=== PATIENT | female | born 1955 | race Caucasian/White ===

== ENCOUNTER 2019-08-26 17:05 | Outpatient (REF) | payer MEDICARE, SELFPAY ==
[2019-08-26 19:13] LABS: Abs Immature Grans 0.01 k/cumm (0.0-0.09); Absolute Basophil Count 0.05 k/cumm (0.0-0.2); Absolute Eosinophil Count 0.24 k/cumm (0.0-0.7); Absolute Lymphocyte Count 2.44 k/cumm (1.2-3.4); Absolute Monocyte Count 0.57 k/cumm (0.11-0.7); Absolute Neutrophil Count 5.37 k/cumm (1.2-6.7); Basophils % 0.6; Eosinophils % 2.8; HCT 47.8 % (36.0-46.0); HGB 15.9 g/dL (12.0-15.5); Immature Grans % 0.1; Lymphocytes % 28.1; Mean Corp. HGB Concentration 33.3 g/dL (32.0-36.0); Mean Corpuscular Volume 90.2 fL (80-95); Mean Platelet Volume 11.3 fL (8.0-11.0); Monocytes % 6.6; Neutrophils % 61.8; Platelet Count 314 x1000/uL (130-400); White Blood Cell Count 8.68 k/cumm (4.4-10.8)
[2019-08-26 19:23] LABS: ALT 19 U/L (14-59); AST 16 U/L (15-37); Albumin 4.1 g/dL (3.4-5.0); Alkaline Phosphatase 99 U/L (46-116); Anion Gap 10.8 mmol/L (3-11); BUN 18 mg/dL (7-18); Bilirubin, Direct 0.12 mg/dL (0.00-0.20); Bilirubin, Total 0.4 mg/dL (0.2-1.0); CO2 27.2 mmol/L (21.0-32.0); CREATININE 0.81 mg/dL (0.55-1.02); Calcium 9.1 mg/dL (8.5-10.1); Chloride 105 mmol/L (98-107); Glucose 88 mg/dL (70-100); PHOSPHORUS 3.7 mg/dL (2.6-4.7); Potassium 4.2 mmol/L (3.5-5.1); Sodium 143 mmol/L (136-145); Total Protein 7.3 g/dL (6.4-8.2)
[2019-08-26 19:26] LABS: PTT Activated 28.1 sec (21.0-31.4); Prothrombin Time 9.8 sec (9.3-11.0)
[2019-08-27 22:24] LABS: CRP, High Sensitivity 1.79 mg/L
[2019-08-28 10:04] LABS: HIV-1/2 Ag & Ab Screen Negative (NEGAT)
[2019-08-28 10:43] LABS: Hepatitis C Ab w Rflx HCV PCR Negative (NEGAT)
[2019-08-28 14:39] LABS: ANA Interpretation Negative (NEGAT)
== END 2019-08-26 17:25 ==
LOC: NCHCN 17:05
PROVIDERS: PCP Family Medicine; Visit Provider Nurse Practitioner Family
DX: R23.3 Spontaneous ecchymoses (principal); E04.2 Nontoxic multinodular goiter; R53.83 Other fatigue; Z11.4 Encounter for screening for human immunodeficiency virus [HIV]; Z11.59 Encounter for screening for other viral diseases
CPT/HCPCS: 80048; 80069; 80076; 86141; 86803; 87389; 85025; 85610; 85730; 86038

== ENCOUNTER 2020-08-10 17:40 | Outpatient (REF) | payer MEDICARE, SELFPAY ==
[2020-08-10 20:30] LABS: Abs Immature Grans 0.02 10^3/uL (0.0-0.06); Absolute Basophil Count 0.04 10^3/uL (0.0-0.2); Absolute Eosinophil Count 0.19 10^3/uL (0.0-0.7); Absolute Lymphocyte Count 2.49 10^3/uL (1.2-3.4); Absolute Neutrophil Count 6.05 10^3/uL (1.2-6.7); Basophils % 0.4; HCT 48.3 % (36.0-46.0); HGB 15.7 g/dL (11.2-15.7); Immature Grans % 0.2; Lymphocytes % 26.5; MCH 29.8 pg (27.0-33.0); MCHC 32.5 % (32.0-36.0); MCV 91.7 fL (80-95); MPV 11.3 fL (8.0-11.0); Monocytes % 6.4; Neutrophils % 64.5; Nucleated RBC 0 %; Platelet Count 258 10^3/uL (130-400); RBC 5.27 10^6/uL (3.93-5.22); RDW 12.5 % (11.7-14.6); RDW-SD 42.4 fL; WBC 9.39 10^3/uL (4.4-10.8)
[2020-08-10 20:54] LABS: Iron 41 ug/dL (50-170); Total Iron Binding Capacity 268 ug/dL (250-450); Transferrin Sat 15 % (15-50)
[2020-08-10 21:01] LABS: ALT 16 U/L (14-59); AST 9 U/L (15-37); Albumin 4.1 g/dL (3.4-5.0); Alkaline Phosphatase 100 U/L (46-116); Anion Gap 8.7 mmol/L (3-11); BUN 18 mg/dL (7-18); Bilirubin, Total 0.4 mg/dL (0.2-1.0); CO2 29.3 mmol/L (21.0-32.0); CREATININE 0.88 mg/dL (0.55-1.02); Calcium 9.2 mg/dL (8.5-10.1); Chloride 106 mmol/L (98-107); Ferritin 149 ng/mL (8-252); Glucose 85 mg/dL (74-106); LDL CHOLESTEROL 124 mg/dL (<100); Potassium 4.2 mmol/L (3.5-5.1); Sodium 144 mmol/L (136-145); TSH (W/Ref FT4) 1.05 uIU/mL (0.36-3.74); Total Protein 6.9 g/dL (6.4-8.2)
[2020-08-13 13:06] LABS: EBNA IgG Positive (Negative); EBV Interpretation (See Note); VCA IgG Positive (Negative); VCA IgM Negative (Negative)
== END 2020-08-10 18:00 ==
LOC: NCHCN 17:40
PROVIDERS: PCP Family Medicine; Visit Provider Physician Assistant
DX: I10 Essential (primary) hypertension (principal); R19.7 Diarrhea, unspecified; R11.0 Nausea; R53.83 Other fatigue; R79.89 Other specified abnormal findings of blood chemistry; Z86.19 Personal history of other infectious and parasitic diseases
CPT/HCPCS: 80053; 83721; 82728; 83540; 83550; 84443; 85025; 86664; 86665

== ENCOUNTER 2022-02-03 17:00 | Outpatient (REF) | payer MEDICARE, SELFPAY | END 2022-02-03 17:01 | disposition home or self-care (01) | LOC: NCHCN 17:00 | PROVIDERS: PCP Family Medicine; Visit Provider Physician Assistant | DX: R31.9 Hematuria, unspecified (principal) | CPT/HCPCS: 87077; 87086; 87186 ==

== ENCOUNTER 2024-12-18 16:21 | Outpatient (REF) | payer MEDICARE, SELFPAY ==
[2024-12-18 19:43] LABS: Anion Gap 5.9 mmol/L (3-11); BUN 19 mg/dL (7-18); CO2 30.1 mmol/L (21.0-32.0); Calcium 9.6 mg/dL (8.5-10.1); Chloride 109 mmol/L (98-107); Estimated GFR 60.23 (mL/min/1.73m2); Glucose 135 mg/dL (74-106); Potassium 4.3 mmol/L (3.5-5.1); Sodium 145 mmol/L (136-145)
== END 2024-12-18 16:22 | disposition home or self-care (01) ==
LOC: NCHCN 16:21
PROVIDERS: PCP Family Medicine; Visit Provider Nurse Practitioner Family
DX: U07.1 COVID-19 (principal)
CPT/HCPCS: 80048

== ENCOUNTER 2025-07-27 19:00 | Outpatient (REF) | payer MEDICARE, SELFPAY ==
[2025-07-27 19:58] LABS: Glucose Negative (Negative)
[2025-07-27 20:02] LABS: RBC >50 HPF (0-2)
[2025-07-28 08:08] LABS: C & S Indicated? Yes
== END 2025-07-27 19:01 | disposition home or self-care (01) ==
LOC: NCHCN 19:00
PROVIDERS: PCP Family Medicine; Visit Provider Nurse Practitioner Family
DX: N20.0 Calculus of kidney (principal)
CPT/HCPCS: 81003; 81015; 87086